=== PATIENT | male | born 1985 | race American Indian/Alaskan Native ===

== ENCOUNTER 2017-12-07 01:46 | Emergency (ER) | payer OTHER ==
[2017-12-07 02:14] VITALS: BP 137/84
--- NOTE | 2017-12-07 02:49 | ED PDOC ---
HPI: Chest Pain Chief Complaint (Provider): chest/side pain History Per: Patient History/Exam Limitations: no limitations Onset/Duration Of Symptoms: Hrs Current Symptoms Are (Timing): Still Present Exacerbating Factors: Turning, Movement, Deep Breathing <Radha Baer - Last Filed: 12/07/17 06:02> <Chas Figueroa - Last Filed: 12/07/17 20:03> Time Seen by Provider: 12/07/17 02:14 Chief Complaint (Nursing): Back Pain Additional Complaint(s): 32 y/o male presents for evaluation of right-sided pain x 1 day. Patient states he woke up with pain on right side, below axilla; and since then noted pain to travel to right chest, under breast. Pain worsened by movement, to touch, and with deep breaths. Denies fever, nausea/vomiting, shortness of breath, palpitations, abdominal pain, dysuria, hematuria. No medications taken for relief thus far. (Radha Baer) Past Medical History Reviewed: Historical Data, Nursing Documentation, Vital Signs - Medical History PMH: No Chronic Diseases - Surgical History Surgical History: No Surg Hx - Family History Family History: States: No Known Family Hx <Radha Baer - Last Filed: 12/07/17 06:02> <Chas Figueroa - Last Filed: 12/07/17 20:03> Vital Signs: Last Vital Signs Temp 98.8 F 12/07/17 07:25 Pulse 77 12/07/17 07:25 Resp 16 12/07/17 07:25 BP 137/84 12/07/17 02:12 Pulse Ox 99 12/07/17 07:25 - Home Medications Home Medications: Ambulatory Orders Medication Instructions Recorded Ibuprofen [Motrin] 600 mg PO Q8 #20 tab 02/23/15 Cyclobenzaprine [Cyclobenzaprine 10 mg PO BID #15 tab 12/07/17 HCl] Naproxen [Naprosyn] 500 mg PO BID #30 tablet 12/07/17 - Allergies Allergies/Adverse Reactions: Allergies Allergy/AdvReac Type Severity Reaction Status Date / Time apricot Allergy RASH Verified 12/07/17 02:16 Review of Systems ROS Statement: Except As Marked, All Systems Reviewed And Found Negative Cardiovascular: Positive for: Chest Pain <Radha Baer - Last Filed: 12/07/17 06:02> Physical Exam - Reviewed Nursing Documentation Reviewed: Yes Vital Signs Reviewed: Yes - Physical Exam Appears: Positive for: Well, Non-toxic, No Acute Distress Head Exam: Positive for: ATRAUMATIC, NORMAL INSPECTION, NORMOCEPHALIC Skin: Positive for: Normal Color Eye Exam: Positive for: Normal appearance ENT: Positive for: Normal ENT Inspection Cardiovascular/Chest: Positive for: Regular Rate, Rhythm. Negative for: Chest Non Tender (tender to palpate right anterior chest wall intercostal spaces underlying right breast, extending to right lateral ribs. No edema, ecchymosis, crepitus noted) Respiratory: Positive for: Normal Breath Sounds Gastrointestinal/Abdominal: Positive for: Normal Exam Back: Positive for: Normal Inspection Extremity: Positive for: Normal ROM Neurologic/Psych: Positive for: Alert, Oriented <Radha Baer - Last Filed: 12/07/17 06:02> - Laboratory Results Result Diagrams: 12/07/17 03:17 12/07/17 03:17 - ECG O2 Sat by Pulse Oximetry: 98 <Radha Baer - Last Filed: 12/07/17 06:02> - Laboratory Results Result Diagrams: 12/07/17 03:17 12/07/17 03:17 <Chas Figueroa - Last Filed: 12/07/17 20:03> - Progress ED Course And Treament: labs, cxr, ekg, iv toradol on re-eval, patient states pain has now traveled to right upper abdomen. WBC elevated, u/s ordered (Radha Baer) Medical Decision Making <Radha Baer - Last Filed: 12/07/17 06:02> <Chas Figueroa - Last Filed: 12/07/17 20:03> Medical Decision Makin U/S negative, patient feeling better. Will d/c home with muscle relaxants. Pt. states he has no PMD, advised to f/u in clinic. (Chas Figueroa) Disposition - Disposition Disposition Time: 06:00 Patient Signed Over To: Chas Figueroa Handoff Comments: pending u/s report <Radha Baer - Last Filed: 12/07/17 06:02> - Disposition Disposition: Routine/Home Disposition Time: 07:00 <Chas Figueroa - Last Filed: 12/07/17 20:03> - Clinical Impression Clinical Impression: Chest pain, Abdominal pain - Disposition Condition: STABLE Prescriptions: Cyclobenzaprine [Cyclobenzaprine HCl] 10 mg PO BID #15 tab Naproxen [Naprosyn] 500 mg PO BID #30 tablet Instructions: Flank Pain Forms: [facility] ([place])
[2017-12-07 03:22] LABS: BASO # 0.1 K/uL (0.0-0.2); BASO % 0.5 % (0.0-2.0); EOS # 0.2 K/uL (0.0-0.7); EOS % 1.3 % (0.0-4.0); HEMOGLOBIN 13.4 g/dL (12.0-18.0); LYMPH # 1.8 K/uL (1.0-4.3); LYMPH % 12.6 % (20.0-40.0); MEAN CORPUSCULAR HEMOGLOBIN 27.1 pg (27.0-31.0); MEAN CORPUSCULAR HGB CONC 32.6 g/dL (33.0-37.0); MEAN PLATELET VOLUME 10.5 fl (7.2-11.7); MONO # 1.3 K/uL (0.0-0.8); MONO % 9.2 % (0.0-10.0); NEUT # 10.9 K/uL (1.8-7.0); NEUT % 76.4 % (50.0-75.0); NRBC % 0.1 % (0.0-0.0); RBC 4.94 Mil/uL (4.40-5.90); RED CELL DISTRIBUTION WIDTH 14.5 % (11.5-14.5); WHITE BLOOD COUNT 14.3 K/uL (4.8-10.8)
[2017-12-07 03:46] LABS: ALB/GLOB RATIO 0.9 (1.0-2.1); ALBUMIN 4.1 g/dL (3.5-5.0); ALT/SGPT 27 U/L (21-72); AST/SGOT 28 U/L (17-59); BLOOD UREA NITROGEN 13 mg/dl (9-20); CALCIUM 8.7 mg/dL (8.4-10.2); GFR AFRICAN-AMERICAN > 60; GFR NON-AFRICAN AMERICAN > 60
[2017-12-07 06:41] VITALS: TEMP 98.8
[2017-12-07 07:26] VITALS: PULSE 77; RESP 16; O2SAT 99
--- NOTE | 2017-12-07 07:56 | CARD ---
APPROVED REPORT EKG Measurement Heart [id number] <Conclusion> Sinus rhythm with marked sinus arrhythmia Right superior axis deviation Incomplete right bundle branch block Abnormal ECG
--- NOTE | 2017-12-07 08:26 | US ---
HISTORY: ruq pain COMPARISON: None. TECHNIQUE: Sonographic evaluation of the right upper quadrant of the abdomen. FINDINGS: LIVER: Measures 16.7 cm in length. Increased echogenicity of the liver parenchyma. No mass. No intrahepatic bile duct dilatation. GALLBLADDER: Unremarkable. No gallstones. COMMON BILE DUCT: Measures 4 mm. No stones. No dilatation. PANCREAS: Unremarkable as visualized. No mass. No ductal dilatation. RIGHT KIDNEY: Measures cm in length. Normal echogenicity. No calculus, mass, or hydronephrosis. AORTA: No aneurysmal dilatation. IVC: Unremarkable. OTHER FINDINGS: None . IMPRESSION: No imaging features to suggest acute cholecystitis. Hepatic steatosis -top-normal liver size Concordant results (preliminary interpretation) provided by [facility].
--- NOTE | 2017-12-07 08:47 | RAD ---
HISTORY: right chest pain COMPARISON: No prior. TECHNIQUE: Chest PA and lateral FINDINGS: LUNGS: No active pulmonary disease. PLEURA: No significant pleural effusion identified. No pneumothorax apparent. CARDIOVASCULAR: Cardiomegaly. Pulmonary vasculature probably top-normal OSSEOUS STRUCTURES: No significant abnormalities. VISUALIZED UPPER ABDOMEN: Normal. OTHER FINDINGS: None. IMPRESSION: Cardiomegaly
== END 2017-12-07 07:26 | disposition home or self-care (01) ==
LOC: H.ER 01:46
DX: R07.89 Other chest pain (principal); R10.9 Unspecified abdominal pain; K76.0 Fatty (change of) liver, not elsewhere classified
CPT/HCPCS: 71046; 76705; 80053; 84484; 85025; 93005; 96374; 99283; J1885